=== PATIENT | female | born 1960 ===

== ENCOUNTER 2016-06-22 07:21 | Day surgery (SDC) | payer MEDICAID ==
[2015-03-26 08:18] VITALS: BMI 31.8
[2016-06-22] MEDS ORDERED: Lactated Ringer's 500 ML IV ONE (08:00)
[2016-06-22 08:22] VITALS: TEMP 97.8
[2016-06-22] MEDS ORDERED: Propofol 10 mg/ml Inj (20 ML) ONE (09:31)
[2016-06-22 10:19] VITALS: BP 110/66; PULSE 52; RESP 18; O2SAT 99
== END 2016-06-22 10:28 | disposition home or self-care (01) ==
LOC: H.ENDO 07:21
PROVIDERS: ATTEND Internal Medicine Gastroenterology
DX: K29.90 Gastroduodenitis, unspecified, without bleeding (principal); K52.9 Noninfective gastroenteritis and colitis, unspecified; K64.8 Other hemorrhoids; K57.30 Diverticulosis of large intestine without perforation or abscess without bleeding; K30 Functional dyspepsia; K25.9 Gastric ulcer, unspecified as acute or chronic, without hemorrhage or perforation